=== PATIENT | male | born 1970 | race Caucasian/White ===

== ENCOUNTER 2017-02-11 13:20 | Outpatient (RCR) | payer MEDICARE, BC ==
[2017-02-14] MEDS ORDERED: XARELTO1 EACH PO (12:30)
[2017-02-14] MEDS ORDERED: FERROUS SULFAT325 MG ORAL (12:30)
[2017-02-14] MEDS ORDERED: DOXAZOSIN MESYLA4 MG ORAL (12:30)
[2017-02-14] MEDS ORDERED: URECHOLINE25 M1 ORAL (12:30)
[2017-02-14] MEDS ORDERED: MULTIVITAMINS1 EAC2 ORAL (12:30)
[2017-02-14] MEDS ORDERED: CREON DR 12,001 EACH PO (12:30)
[2017-02-14] MEDS ORDERED: LEVOTHYROXINE112 MCG ORAL (12:32)
[2017-02-14] MEDS ORDERED: MELATONIN1 MG PO (12:32)
[2017-02-14] MEDS ORDERED: METOPROLOL TART50 M1 ORAL (12:32)
[2017-02-14] MEDS ORDERED: PANTOPRAZOLE SO40 MG ORAL (12:32)
[2017-02-14] MEDS ORDERED: ACIDOPHILUS LA1 EAC2 PO (12:32)
[2017-02-14] MEDS ORDERED: RISPERDAL2 MG ORAL (12:34)
[2017-02-14] MEDS ORDERED: BUPROPION XL150 MG ORAL (12:34)
[2017-02-14] MEDS ORDERED: QUETIAPINE FUMA50 MG ORAL (12:34)
[2017-02-14] MEDS ORDERED: POTASSIUM CHLO20 ME1 ORAL (12:34)
[2017-02-14] MEDS ORDERED: ROXICODONE15 MG ORAL (12:36)
[2017-02-14] MEDS ORDERED: TRAZODONE HCL50 MG ORAL (12:36)
[2017-02-14] MEDS ORDERED: PHENAZOPYRIDIN100 MG ORAL (21:14)
[2017-02-14] MEDS ORDERED: NITROFURANTOIN100 M2 ORAL (21:14)
== END 2017-02-23 | disposition home or self-care (01) ==
LOC: WCC 13:20
DX: S31.105S Unspecified open wound of abdominal wall, periumbilic region without penetration into peritoneal cavity, sequela (principal); Z93.3 Colostomy status; X58.XXXD Exposure to other specified factors, subsequent encounter
CPT/HCPCS: 11043; 11046; C5271; C5272; Q4124; 15271; 15272

== ENCOUNTER 2017-02-14 11:56 | Emergency (ER) | payer MEDICARE, BC, MEDICAID ==
[~2017-02-14] VITALS: Ht 172.7 cm; Wt 77.1 kg
--- NOTE | 2017-02-14 12:21 | Emergency Room Report ---
History of Present Illness General Chief Complaint: Male Urogenital Problems Source: Patient, Family Member Present Illness HPI Patient has a complicated history with the antiphospholipid syndrome requiring emergency surgery and a 2 month hospitalization at [facility]. He's had urologic problems post that. A Davidson was removed on January 18. He's not been able to urinate since 8:30 this morning. He does take bethanechol. He complains of pain in the bladder, not radiating, severe (10), pressure. 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 He is at [facility] at this time. The patient's also complaining about anxiety. H/O bipolar disorder. On medications. He denies any fevers chills. He's had urinary tract infections in the past. Denies prostate problems. Has colostomy, no change in stool. No vomiting. Recently had a pancreatic stent removed. Allergies: Coded Allergies: No Known Allergies (Unverified , 02/14/17) Patient History Past Medical History: see triage record Past Surgical History: other - colostomy Social History: Denies: alcohol use, drug use, smoking Social History Narrative SNF Reviewed Nursing Documentation: PMH: Agreed, PSxH: Agreed Nursing Documentation-PM Past Medical History: No History, Except For Hx Cardiac Problems: No - Colectomy , pancreatic stent Hx Hypertension: Yes Hx Pacemaker: No Hx Asthma: No Hx COPD: No Hx Diabetes: No Hx Cancer: No Hx Dialysis: No History Of Psychiatric Problem: Yes - Bipolar Hx Cerebrovascular Accident: No Hx Seizures: No Review of Systems All Other Systems: negative except mentioned in HPI Physical Exam Vital Signs Date Time Temp Pulse Resp B/P Pulse Ox O2 Delivery O2 Flow Rate FiO2 02/14/17 12:01 98.1 98 16 141/86 98 Room Air Sp02 EP Interpretation: reviewed, normal General Appearance: no apparent distress, GCS 15, Chronically Ill Head: normocephalic Eyes: bilateral eye PERRL, bilateral eye normal inspection ENT: moist mucus membranes Neck: supple Respiratory: lungs clear, normal breath sounds Cardiovascular #1: regular rate, rhythm Cardiovascular #2: 2+ radial (R) Gastrointestinal: normal inspection, normal bowel sounds, non tender, no mass, non-distended, other - colostomy Genitourinary: normal inspection, no CVA tenderness Musculoskeletal: back normal, gait/station normal, normal range of motion Neurologic: alert, oriented x3, grossly normal Psychiatric: anxious Skin: normal inspection, warm/dry Medical Decision Making Diagnostic Impression: Primary Impression: Urinary retention Additional Impression: Anxiety ER Course Patient presents with inability to urinate. Ddx; uti, retention, medication reaction, anxiety amongst others. Davidson will be placed. Urine will be analyzed. Labs to exclude infection and renal dysfunction not indicated as acute event and he is being followed. Relief after davidson. UA clear. Patient stable for outpatient observation and treatment. Laboratory Tests Test 02/14/17 13:00 Urine Color Pale yellow Urine Appearance Clear Urine pH 7 (4.5-8.0) Urine Specific [place] 1.015 (1.005-1.035) Urine Protein Negative (NEGATIVE) Urine Glucose (UA) Negative (NEGATIVE) Urine Ketones Negative (NEGATIVE) Urine Occult Blood Negative (NEGATIVE) Urine Nitrite Negative (NEGATIVE) Urine Bilirubin Negative (NEGATIVE) Urine Urobilinogen Normal MG/DL (0.0-1.0) Urine Leukocyte Esterase Negative (NEGATIVE) Last Vital Signs Date Time Temp Pulse Resp B/P Pulse Ox O2 Delivery O2 Flow Rate FiO2 02/14/17 14:47 72 16 121/90 96 Room Air 02/14/17 14:30 98.1 Status: improved Disposition: [facility] SN[facility] Condition: Improved Rigoberto Hester M.D. Feb 14, 2017 12:21
[2017-02-14] MEDS ORDERED: MULTIVITAMINS1 EAC2 ORAL (12:30)
[2017-02-14] MEDS ORDERED: URECHOLINE25 M1 ORAL (12:30)
[2017-02-14] MEDS ORDERED: XARELTO1 EACH PO (12:30)
[2017-02-14] MEDS ORDERED: DOXAZOSIN MESYLA4 MG ORAL (12:30)
[2017-02-14] MEDS ORDERED: CREON DR 12,001 EACH PO (12:30)
[2017-02-14] MEDS ORDERED: FERROUS SULFAT325 MG ORAL (12:30)
[2017-02-14] MEDS ORDERED: PANTOPRAZOLE SO40 MG ORAL (12:32)
[2017-02-14] MEDS ORDERED: LEVOTHYROXINE112 MCG ORAL (12:32)
[2017-02-14] MEDS ORDERED: METOPROLOL TART50 M1 ORAL (12:32)
[2017-02-14] MEDS ORDERED: ACIDOPHILUS LA1 EAC2 PO (12:32)
[2017-02-14] MEDS ORDERED: MELATONIN1 MG PO (12:32)
[2017-02-14] MEDS ORDERED: BUPROPION XL150 MG ORAL (12:34)
[2017-02-14] MEDS ORDERED: POTASSIUM CHLO20 ME1 ORAL (12:34)
[2017-02-14] MEDS ORDERED: QUETIAPINE FUMA50 MG ORAL (12:34)
[2017-02-14] MEDS ORDERED: RISPERDAL2 MG ORAL (12:34)
[2017-02-14] MEDS ORDERED: ROXICODONE15 MG ORAL (12:36)
[2017-02-14] MEDS ORDERED: TRAZODONE HCL50 MG ORAL (12:36)
[2017-02-14 13:33] LABS: APPEARANCE,URINE CLEAR; KETONES,URINE NEGATIVE (NEGATIVE); LEUKOCYTE ESTERASE ,URINE NEGATIVE (NEGATIVE); NITRITE,URINE NEGATIVE (NEGATIVE); PH,URINE 7 (4.5-8.0); PROTEIN,URINE NEGATIVE (NEGATIVE); UROBILINOGEN,URINE NORMAL MG/DL (0.0-1.0)
[2017-02-14 13:45] VITALS: BP 138/86
[2017-02-14 14:30] VITALS: BP 127/86
[2017-02-14 14:47] VITALS: BP 121/90
[2017-02-14] MEDS ORDERED: NITROFURANTOIN100 M2 ORAL (21:14)
[2017-02-14] MEDS ORDERED: PHENAZOPYRIDIN100 MG ORAL (21:14)
== END 2017-02-14 14:55 | disposition home or self-care (01) ==
LOC: EMR 12:20
DX: R33.9 Retention of urine, unspecified (principal); F41.9 Anxiety disorder, unspecified; Z86.718 Personal history of other venous thrombosis and embolism; Z79.01 Long term (current) use of anticoagulants; F31.9 Bipolar disorder, unspecified
CPT/HCPCS: 81003; 99284

== ENCOUNTER 2017-02-14 19:58 | Emergency (ER) | payer MEDICARE, BC, MEDICAID ==
[~2017-02-14] VITALS: Ht 182.9 cm; Wt 97.5 kg
[~2017-02-14 19:58] MED LIST: ACIDOPHILUS LA1 EAC2 PO; BUPROPION XL150 MG ORAL; CREON DR 12,001 EACH PO; DOXAZOSIN MESYLA4 MG ORAL; FERROUS SULFAT325 MG ORAL; LEVOTHYROXINE112 MCG ORAL; MELATONIN1 MG PO; METOPROLOL TART50 M1 ORAL; MULTIVITAMINS1 EAC2 ORAL; PANTOPRAZOLE SO40 MG ORAL; POTASSIUM CHLO20 ME1 ORAL; QUETIAPINE FUMA50 MG ORAL; RISPERDAL2 MG ORAL; ROXICODONE15 MG ORAL; TRAZODONE HCL50 MG ORAL; URECHOLINE25 M1 ORAL; XARELTO1 EACH PO
[2017-02-14 20:30] VITALS: BP 126/80
[2017-02-14] MEDS ORDERED: PHENAZOPYRIDIN100 MG ORAL (21:14)
[2017-02-14] MEDS ORDERED: NITROFURANTOIN100 M2 ORAL (21:14)
--- NOTE | 2017-02-14 21:15 | Emergency Room Report ---
History of Present Illness General Chief Complaint: Male Urogenital Problems Source: Patient Present Illness HPI This is a 46-year-old male with multiple medical problem. He had been seen here earlier for urinary retention. A 14 [place] Davidson was placed. Mom says she empty leg bag at around 6:00. Since then, for the last 2 hours patient complaining of suprapubic pain. Said that is not making much urine. [place] it may be obstructed. He came in to be evaluated. No other complaint. Allergies: Coded Allergies: No Known Allergies (Unverified , 02/14/17) Patient History Past Medical History: see triage record, old chart reviewed Past Surgical History: other Pertinent Family History: none Social History: Denies: smoking Immunizations: other Reviewed Nursing Documentation: PMH: Agreed, PSxH: Agreed Nursing Documentation-PMH Hx Cardiac Problems: No - Colectomy , pancreatic stent Hx Hypertension: Yes Hx Pacemaker: No Hx Asthma: No Hx COPD: No Hx Diabetes: No Hx Cancer: No Hx Dialysis: No Hx Cerebrovascular Accident: No Hx Seizures: No Review of Systems Eye: Denies: blurred vision, eye pain ENT: Denies: ear pain, nose congestion, throat swelling Respiratory: Denies: cough, shortness of breath Cardiovascular: Denies: chest pain, palpitations Gastrointestinal: Denies: abdominal pain, diarrhea, nausea, vomiting Genitourinary: Reports: pain Musculoskeletal: Denies: back pain, joint pain Skin: Denies: rash Neurological: Denies: headache, numbness Endocrine: Denies: increased thirst, increased urine Hematologic/Lymphatic: Denies: easy bruising All Other Systems: negative except mentioned in HPI Physical Exam Vital Signs Date Time Temp Pulse Resp B/P Pulse Ox O2 Delivery O2 Flow Rate FiO2 02/14/17 20:05 97.9 118 20 126/80 96 Room Air vitals with tachycardia Sp02 EP Interpretation: reviewed, normal General Appearance: well appearing, no apparent distress, alert Head: normocephalic, atraumatic Eyes: bilateral eye EOMI, bilateral eye PERRL ENT: hearing grossly normal, normal pharynx Neck: full range of motion, supple, no meningismus Respiratory: chest non-tender, lungs clear, normal breath sounds Cardiovascular #1: regular rate, rhythm, no murmur Gastrointestinal: normal bowel sounds, non tender, no mass, no organomegaly, no bruit, non-distended, other - colostomy intact Genitourinary: other - davidson with reddish urine Musculoskeletal: back normal, gait/station normal, normal range of motion Psychiatric: mood/affect normal Skin: warm/dry Medical Decision Making Diagnostic Impression: Primary Impression: Dysuria ER Course Patient complaining of dysuria. This may be from the Davidson. His Davidson is not obstructed. Irrigated and fluid came back at without a problem. No clots. I empty the bag and wait for 30 minutes. Afterward, there was about 50 mL in the bag. I did a bedside ultrasound in the bladder was empty. I showed this to his mom. He is resting comfortably. She keep insisting that he is in a lot of pain. She want me to change the leg bag because she thinks the bag itself is causing him not to urinate. Explained to her that is not the case. His bladder is empty normally. Amount of urine that he has in half an hour is appropriate. I will put him on Pyridium and prophylactic antibiotics. Patient and mom reassured. We'll discharge home. Last Vital Signs Date Time Temp Pulse Resp B/P Pulse Ox O2 Delivery O2 Flow Rate FiO2 02/14/17 20:30 97.9 20 126/80 96 Room Air 02/14/17 20:05 118 Status: improved Disposition: HOME, SELF-CARE Condition: Stable Scripts Phenazopyridine Hcl* (PYRIDIUM*) 100 Mg Tablet 100 MG ORAL THREE TIMES A DAY, #6 TAB Prov: ANTIONE JANSEN M.D. 02/14/17 Nitrofurantoin Monohyd/M-Cryst* (MACROBID 100 MG*) 100 Mg Capsule 100 MG ORAL EVERY 12 HOURS, #14 CAP Prov: ANTIONE JANSEN M.D. 02/14/17 Additional Instructions: Follow up with your doctor in 7 days. Return if worse. ANTIONE JANSEN M.D. Feb 14, 2017 21:15
[2017-02-14 21:35] VITALS: BP 126/80
== END 2017-02-14 21:35 | disposition home or self-care (01) ==
LOC: EMR 20:45
DX: R30.0 Dysuria (principal); R33.9 Retention of urine, unspecified; I10 Essential (primary) hypertension
CPT/HCPCS: 99284

== ENCOUNTER 2017-02-25 13:30 | Outpatient (RCR) | payer MEDICARE, BC ==
[~2017-02-25 13:30] MED LIST changes: +NITROFURANTOIN100 M2 ORAL; +PHENAZOPYRIDIN100 MG ORAL
== END 2017-03-26 | disposition home or self-care (01) ==
LOC: WCC 13:30
DX: S31.105S Unspecified open wound of abdominal wall, periumbilic region without penetration into peritoneal cavity, sequela (principal); Z93.3 Colostomy status; X58.XXXS Exposure to other specified factors, sequela
CPT/HCPCS: 11043; 11046; C5271; C5272; Q4124

== ENCOUNTER 2017-04-01 13:26 | Outpatient (RCR) | payer MEDICARE, BC | END 2017-04-25 | disposition home or self-care (01) | LOC: WCC 13:26 | DX: S31.105S Unspecified open wound of abdominal wall, periumbilic region without penetration into peritoneal cavity, sequela (principal); X58.XXXS Exposure to other specified factors, sequela; Z93.3 Colostomy status | CPT/HCPCS: G0463 ×2 ==

== ENCOUNTER 2017-06-03 13:30 | Outpatient (RCR) | payer MEDICARE, BC | END 2017-06-25 | disposition home or self-care (01) | LOC: WCC 13:30 | DX: S31.104D Unspecified open wound of abdominal wall, left lower quadrant without penetration into peritoneal cavity, subsequent encounter (principal); S31.102S Unspecified open wound of abdominal wall, epigastric region without penetration into peritoneal cavity, sequela; S31.105S Unspecified open wound of abdominal wall, periumbilic region without penetration into peritoneal cavity, sequela; X58.XXXS Exposure to other specified factors, sequela | CPT/HCPCS: 11043 ==